=== PATIENT | female | born 1950 | race African-American/Black ===

== ENCOUNTER 2017-08-23 14:31 | Inpatient (IN) | payer MEDICARE, MEDICAID ==
[~2017-08-23] VITALS: Ht 165.1 cm; Wt 92.1 kg
[2017-08-23] MEDS ORDERED: IOHEXOL-300 100 ML BOTTLE ONE (14:39)
[2017-08-23] MEDS ORDERED: SODIUM CHLORIDE 0.9% 10ML VIAL ONE (14:39)
[2017-08-23] MEDS ORDERED: SODIUM CHLORIDE 0.9% 1,000 ML IV ONE (19:30)
[2017-08-23] MEDS ORDERED: ACETAMINOPHEN 500MG TABLET PO ONE (19:30)
[2017-08-23 20:10] LABS: BASOPHILS % 0.3 % (0.0-2.0); HEMATOCRIT. 34.3 % (36.0-48.0); HEMOGLOBIN. 11.9 g/dL (12.0-16.0); LYMPHOCYTES % 15.2 % (20.0-50.0); MEAN CORPUSCULAR VOLUME 89.9 fL (81.0-99.0); MEAN PLATELET VOLUME 11.1 fl (7.4-10.4); MONOCYTES % 6.5 % (2.0-8.0); PLATELET 134 x1000/uL (130-400); RED BLOOD CELL COUNT 3.82 mill/uL (4.2-5.4); RED CELL DISTRIBUTION WIDTH 12.8 % (11.6-14.6)
[2017-08-23 20:17] LABS: CARBON DIOXIDE 29 mEq/L (21-32); CHLORIDE 107 mEq/L (98-107)
[2017-08-23 22:00] LABS: CLARITY URINE CLEAR (CLEAR); COLOR URINE YELLOW (YELLOW); GLUCOSE URINE NEGATIVE (NEGATIVE); KETONES URINE 2+ (NEGATIVE); LEUKOCYTE ESTERASE URINE NEGATIVE (NEGATIVE); NITRITE URINE NEGATIVE (NEGATIVE); OCCULT BLOOD URINE NEGATIVE (NEGATIVE); PROTEIN URINE NEGATIVE (NEGATIVE); SPECIFIC GRAVITY URINE 1.018 (1.005-1.030)
[2017-08-23] MEDS ORDERED: SODIUM CHLORIDE 0.9% 1000ML BAG (SEPSIS BOLUS) IV ONE (22:30)
[2017-08-23 22:57] LABS: INR 1.1; PROTHROMBIN TIME 11.4 sec (9.4-11.6)
[2017-08-23] MEDS ORDERED: DOCUSATE SODIUM 100MG CAPSULE PO PRN (23:30)
[2017-08-23] MEDS ORDERED: NA PHOS,M-B/NA PHOS,DI-BA ENEMA 118ML PR PRN (23:30)
[2017-08-23] MEDS ORDERED: KETOROLAC 15MG/ML VIAL IV PRN (23:30)
[2017-08-23] MEDS ORDERED: NITROGLYCERIN 0.4MG TABLET SL SL PRN (23:30)
[2017-08-23] MEDS ORDERED: IPRATROPIUM/ALBUTEROL 0.5-3(2.5)MG/3ML NEB INH PRN (23:30)
[2017-08-23] MEDS ORDERED: DIPHENHYDRAMINE 50MG/ML VIAL IV PRN (23:30)
[2017-08-23] MEDS ORDERED: GUAIFENESIN 200MG/10ML SUGAR FREE UDC PO PRN (23:30)
[2017-08-23] MEDS ORDERED: CLONIDINE 0.1MG TABLET PO PRN (23:30)
[2017-08-23] MEDS ORDERED: ONDANSETRON HCL 4MG/2ML VIAL IV PRN (23:30)
[2017-08-23] MEDS ORDERED: MAGNESIUM/ALUMINUM HYDROXIDE/SIMETHICONE 30ML UDC PO PRN (23:30)
[2017-08-23] MEDS ORDERED: LORAZEPAM 2MG/ML CPJ IV PRN (23:30)
[2017-08-23] MEDS ORDERED: ZOLPIDEM TARTRATE 5MG TABLET PO PRN (23:30)
[2017-08-24 01:00] VITALS: BP 118/65
[2017-08-24] MEDS: ACETAMINOPHEN 325MG TABLET PO PRN ×2 (01:19→21:40)
[2017-08-24] MEDS: SODIUM CHLORIDE 0.9% 1,000 ML IV SCH ×3 (02:16→21:41)
[2017-08-24] MEDS: LEVOFLOXACIN 500MG PREMIX 100 ML IV SCH (03:11)
[2017-08-24] MEDS: CEFTRIAXONE 1 G PREMIX 50 ML IV SCH (03:11)
[2017-08-24 04:00] VITALS: BP 106/62
[2017-08-24 07:16] LABS: CREATINE KINASE 73 IU/L (26-192); CREATINE KINASE MB FRACTION 0.6 ng/mL (0.5-3.6); TROPONIN I < 0.02 ng/mL (0.00-0.04)
[2017-08-24] MEDS ORDERED: AMLO10TA80 PO (07:57)
[2017-08-24] MEDS ORDERED: LOSA25TA12 PO (07:57)
[2017-08-24 08:20] VITALS: BP 121/51
[2017-08-24] MEDS: METOPROLOL TARTRATE 25MG TABLET PO SCH ×2 (09:00→21:40)
[2017-08-24 09:28] LABS: *AMPHETAMINES SCREEN URINE NEGATIVE (NEGATIVE); *BARBITURATES SCREEN URINE NEGATIVE (NEGATIVE); *BENZODIAZEPINES SCREEN URINE NEGATIVE (NEGATIVE); *COCAINE SCREEN URINE NEGATIVE (NEGATIVE); CANNABINOID URINE SCREEN NEGATIVE (NEGATIVE); METHADONE URINE SCREEN NEGATIVE (NEGATIVE); OPIATES URINE SCREEN NEGATIVE (NEGATIVE); PHENCYCLIDINE URINE SCREEN NEGATIVE (NEGATIVE)
[2017-08-24] MEDS: TRAMADOL 50MG TABLET PO PRN (09:29)
[2017-08-24] MEDS: PANTOPRAZOLE SODIUM 40 MG/VIAL IV SCH (09:33)
[2017-08-24] MEDS: ENOXAPARIN 40MG/0.4ML SYR SUBCUT SCH (09:37)
[2017-08-24 12:50] VITALS: BP 121/64
[2017-08-24 15:58] LABS: BASOPHILS % 0.3 % (0.0-2.0); EOSINOPHILS % 0.6 % (0.0-5.0); HEMATOCRIT. 32.2 % (36.0-48.0); HEMOGLOBIN. 11.1 g/dL (12.0-16.0); LYMPHOCYTES % 18.6 % (20.0-50.0); MEAN CORPUSCULAR HEMOGLOBIN 31.3 pg (28.0-32.0); MEAN PLATELET VOLUME 11.4 fl (7.4-10.4); MONOCYTES % 7.6 % (2.0-8.0); NEUTROPHILS % 72.9 % (40.0-76.0); PLATELET 129 x1000/uL (130-400); RED BLOOD CELL COUNT 3.54 mill/uL (4.2-5.4); RED CELL DISTRIBUTION WIDTH 13.1 % (11.6-14.6)
[2017-08-24 16:18] LABS: CARBON DIOXIDE 30 mEq/L (21-32); CHLORIDE 105 mEq/L (98-107); CREATINE KINASE 77 IU/L (26-192); CREATINE KINASE MB FRACTION < 0.5 ng/mL (0.5-3.6); TROPONIN I < 0.02 ng/mL (0.00-0.04)
[2017-08-24 16:48] VITALS: BP 107/40
[2017-08-24 20:00] VITALS: BP 131/69
[2017-08-24] MEDS: MORPHINE SULFATE 4 MG/ML CPJ (NOT FOR IM USE) IV PRN (20:54)
[2017-08-25] VITALS: BP 122/72
[2017-08-25 04:00] VITALS: BP 116/64
[2017-08-25] MEDS: CEFTRIAXONE 1 G PREMIX 50 ML IV SCH (04:08)
[2017-08-25] MEDS: LEVOFLOXACIN 500MG PREMIX 100 ML IV SCH (04:10)
[2017-08-25] MEDS: ACETAMINOPHEN 325MG TABLET PO PRN (04:26)
[2017-08-25] MEDS: MORPHINE SULFATE 4 MG/ML CPJ (NOT FOR IM USE) IV PRN ×2 (04:28→09:57)
[2017-08-25 09:05] VITALS: BP 111/60
[2017-08-25] MEDS: SODIUM CHLORIDE 0.9% 1,000 ML IV SCH ×2 (09:55→17:00)
[2017-08-25] MEDS: PANTOPRAZOLE SODIUM 40 MG/VIAL IV SCH (09:57)
[2017-08-25] MEDS: METOPROLOL TARTRATE 25MG TABLET PO SCH (09:58)
[2017-08-25] MEDS: ENOXAPARIN 40MG/0.4ML SYR SUBCUT SCH (09:58)
[2017-08-25 12:06] VITALS: BP 102/54
[2017-08-25] MEDS: TRAMADOL 50MG TABLET PO PRN (15:01)
[2017-08-25 16:33] VITALS: BP 140/60
[2017-08-25 17:36] VITALS: BP 112/66
== END 2017-08-25 18:20 | disposition home or self-care (01) | DRG 552 ==
LOC: ER 14:31 → 6WST 22:16 → EDBEDREQ 22:30 → ENRESERV 22:52
PROVIDERS: ADMIT Internal Medicine; ATTEND Internal Medicine
DX: M51.36 Other intervertebral disc degeneration, lumbar region (principal); I95.9 Hypotension, unspecified; E44.1 Mild protein-calorie malnutrition; M79.1 Myalgia; I10 Essential (primary) hypertension; E66.9 Obesity, unspecified; Z88.6 Allergy status to analgesic agent; Z88.0 Allergy status to penicillin; Z68.33 Body mass index [BMI] 33.0-33.9, adult; R50.9 Fever, unspecified
CPT/HCPCS: 36415; 71020; 72148; 74177; 80053; 80061; 80305; 81003; 82550; 82553; 82962; 83036; 83605; 84484; 85025; 85610; 87040; 87086; 93970; 99285; A4216; C1893; C9113; J0696; J1650; J1956; J2270; J7030; J7050; Q9967